=== PATIENT | female | born 1995 | race Caucasian/White ===

== ENCOUNTER 2024-02-29 11:48 | Outpatient (REF) | payer MEDICAID, SELFPAY ==
[2024-02-29 14:24] LABS: MANUAL DIFF FLAG NO
[2024-02-29 14:39] LABS: Basophils Percent Auto 0.4 % (0-2); Eosinophils Absolute Auto 0.1 X10*3/uL (0.0-0.4); Hematocrit 39.8 % (37.0-47.0); Imm Gran Abs Auto 0.01 X10*3/uL (0.00-0.03); Imm Gran Pct Auto 0.2 % (0.0-0.4); Lymphocytes Absolute Auto 1.7 X10*3/uL (1.2-4.9); Lymphocytes Percent Auto 32.1 % (20-40); Mean Corpuscular HGB Conc 32.7 g/dl (31.0-35.0); Mean Corpuscular Volume 91.9 fL (80.0-98.0); Mean Platelet Volume 11.3 fL (9.4-12.3); Monocytes Absolute Auto 0.3 X10*3/uL (0.1-1.2); Monocytes Percent Auto 6.4 % (2-11); Neutrophils Absolute Auto 3.1 x10*3/uL (2.0-8.3); Neutrophils Percent Auto 59.9 % (45-73); Platelet Count 301 X10*3/uL (160-400); Red Blood Count 4.33 X10*6/uL (4.20-5.50); Red Cell Distribution Width 13.1 % (11.0-16.0); White Blood Count 5.1 X10*3/uL (4.8-10.8)
[2024-02-29 14:49] LABS: Magnesium 2.2 mg/dL (1.6-2.6)
[2024-02-29 15:05] LABS: TSH reflex Free T4 0.67 uIU/mL (0.32-4.0); Vitamin D 25-OH Total 22.7 ng/mL (>30)
[2024-02-29 15:17] LABS: Folate 7.6 ng/mL (> or = 4.0); Vitamin B12 279 pg/mL (200-900)
== END 2024-02-29 11:49 | disposition home or self-care (01) ==
LOC: HO.CHCLDS 11:48
PROVIDERS: Visit Provider Pediatrics
DX: L65.9 Nonscarring hair loss, unspecified (principal)
CPT/HCPCS: 36415; 82306; 82607; 82746; 83735; 84443; 85025

== ENCOUNTER 2025-02-09 11:02 | Outpatient (REF) | payer MEDICAID, SELFPAY ==
--- OUTSIDE RECORDS SUMMARY | 2025-02-09 12:48 | XMS_ITS | Encounter Summary ---
Author Organization [employer] Address [address] [place] [address] [address] [place] [address] Care Team Providers Care Balancing Machine Operator Name Role Phone Hannah Brush MD Primary Care Provider [phone] Reason for Referral * Consultation (Routine) - Authorized Specialty Diagnoses / Procedures Referred By Thor zepeda Referred To Contact Behavioral Health Diagnoses Attention deficit Hannah Brush MD [address] [place] [address] Phone: tel: fax: Referral ID Status Reason Start Date Expiration Date Visits Requested Visits Authorized [id number] Authorized Specialty Services Required 02/09/2025 02/09/2026 1 1 Encounter Details Date Type Department Care Team (Late st Contact Info) Description 02/09/2025 10:00 AM EDT Office Visit [facility] [address] [place] [address] Hannah Brush MD [address] [place] [address] Vitamin D deficiency (Primary Dx); Dietary counseling; Exercise counseling; Routine general medical examination at a health care facility; Encounter for immunization; Attention deficit Social History Tobacco Use Types Packs/Day Years Used Date Smoking Tobacco: Never Passive Smoke Exposure: Never Smokeless Tobacco: Never Alcohol Use Standard Drinks/Week Comments Never 0 (1 standard drink = 0.6 oz pur e alcohol) Depression Answer Date Recorded Patient Health Questionnaire-9 Score 19 02/09/2025 Patient Health Questionnaire-9 Score 19 02/09/2025 Last PHQ-9: Questionnaire Data Not on file 0 02/09/2025 Housing Stability Answer Date Recorded What is your housing situation today? I have lonny nicole 10/11/[address] you li ve. Do you have problems with any of the following? None of the above 10/11/2024 Food Insecurity Answer Date Recorded Within the past 12 months, y ou worried that your food would run out before you got money to buy more: Never True 10/11/2024 Within the past 12 months,th e food you bought just didn't last and you didn't have enough money to get more: Never True 02/2024 Transportation Answer Date Recorded In the past 12 months, has l ack of transportation kept you from medical appts, meetings, work or from getting things needed for daily living? No 01/31/2025 Utilities Answer Date Recorded In the past 12 months, has t he electric, gas, oil or water company threatened to shut off services in your home? No 10/11/2024 Depression Answer Date Recorded Patient Health Questionnaire-2 Score 3 02/09/2025 Internet Access Answer Date Recorded Internet Access Q1 Yes 10/11/2024 Internet Access Q2 Not on file 10/11/2024 Comments No Sex and Gender Information Value Date Recorded Sex Assigned at Female 09/07/2022 10:35 AM EDT Legal Sex Female 10:35 AM EDT Gender Identity Female 09/07/2022 10:35 AM EDT Sexual Orientation Straight 09/07/2022 10 :35 AM EDT documented as of this encounter Last Filed Vital Signs Vital Sign Reading Time Taken Comments Blood Pressure 110/73 02/09/2025 10:06 AM EDT Pulse 80 02/09/2025 10:06 AM EDT Temperature 36.7 ??C (98.1 ??F) 02/09/2025 10:06 AM E DT Respiratory Rate 16 02/09/2025 10:06 AM EDT Oxygen Saturation 98% 02/09/2025 10:06 AM EDT Inhaled Oxygen Concentration - - Weight 73 kg (161 lb) 02/09/2025 10:06 AM EDT Height 160 cm (5' 3 ) 02/09/2025 10:06 AM EDT Body Mass Index 28.52 02/09/2025 10:06 AM EDT documented in this encounter Progress Notes * Hannah Brush MD - 02/09/2025 10:00 AM EDT Subjective Patient ID: Grady Barrios is a 30 y.o. female who presents for her PE visit. Grady is a healthy 30 y/o female patient of mine here for her PE visit. Feels well today. Needs her pap smear done but is on her period today so she would like to get it schedule another day. Her periods are irregular as she is on OCPs. C/O overall breast tenderness mostly related to period time.Denies drinking too much coffee. Works remotely. Lives with her son only . States despite living in a quiet environment she is constantly reminded by her boss that she lacks attention doing her job. States that I have referred her to behavioral health but they have not returned her call or referred herto outpatient therapy yet. Denies depression or anxiety symptoms today. Complains of chronic fatigue despite having normal labs. States wakes up frequently at night because her son coughs a lot due to his asthma and allergies. Review of Systems Constitutional: Negative for activity change, chills, fever and unexpected weight change. Respiratory: Negative for cough, shortness of breath and wheezing. Cardiovascular: Negative for chest pain, palpitations and leg swelling. Gastrointestinal: Negative for abdominal pain and blood in stool. Endocrine: Negative for polydipsia and polyuria. Genitourinary: Negative for decreased urine volume, difficulty urinating, dysuria and hematuria. Musculoskeletal: Negative for arthralgias and gait problem. Skin: Negative for color change and rash. Neurological: Negative for dizziness and headaches. Hematological: Negative for adenopathy. Psychiatric/Behavioral: Positive for decreased concentration and sleep disturbance. Negative for agitation, dysphoric mood, hallucinations and suicidal ideas. The patient is not nervous/anxious and is not hyperactive. Objective BP 110/73 (BP Location: Left arm, Patient Position: Sitting, BP Cuff Size: Adult) Pulse80 Temp 98.1 ??F (36.7 ??C) (Oral) Resp 16 Ht 5' 3 (1.6 m) Wt 161 lb (73 kg) LMP 02/05/2025 (Exact Date) SpO2 98% BMI 28.52 kg/m?? Physical Exam Constitutional: General: She is not in acute distress. Appearance: Normal appearance. She is not ill-appearing. HENT: Head: Normocephalic. Right Ear: Tympanic membrane and ear canal normal. Left Ear: Tympanic membrane and ear canal normal. Nose: Nose normal. Mouth/Throat: Mouth: Mucous membranes are moist. Pharynx: No oropharyngeal exudate or posterior oropharyngeal erythema. Eyes: Extraocular Movements: Extraocular movements intact. Conjunctiva/sclera: Conjunctivae normal. Pupils: Pupils are equal, round, and reactive to light. Cardiovascular: Rate and Rhythm: Normal rate and regular rhythm. Pulses: Normal pulses. Heart sounds: Normal heart sounds. Pulmonary: Effort: Pulmonary effort is normal. No respiratory distress. Breath sounds: Normal breath sounds. Chest: Breasts: Doroteo Score is 5. Right: Normal. No bleeding, inverted nipple, mass, nipple discharge, skin change or tenderness. Left: Normal. No bleeding, inverted nipple, mass, nipple discharge, skin change or tenderness. Abdominal: Palpations: Abdomen is soft. Musculoskeletal: General: Normal range of motion. Cervical back: Normal range of motion. Lymphadenopathy: Upper Body: Right upper body: No supraclavicular or axillary adenopathy. Left upper body: No supraclavicular or axillary adenopathy. Skin: General: Skin is warm. Capillary Refill: Capillary refill takes less than 2 seconds. Neurological: General: No focal deficit present. Mental Status: She is alert and oriented to person, place, and time. Psychiatric: Mood and Affect: Mood normal. Behavior: Behavior normal. Thought Content: Thought content normal. Judgment: Judgment normal. Assessment/Plan Diagnoses and all orders for this visit: Vitamin D deficiency Comments: Patient states she took her vitamin D replacement as prescribed. Will recheck levels today and treat again if needed patient agrees. Orders: - Vitamin D, 25-Hydroxy, Total, Immunoassay; Future Dietary counseling Exercise counseling Routine general medical examination at a health care facility Comments: Patient is due for Pap smear but declines today due to having her. She will be scheduled with me for this matter. Breast exam done today and was normal. She is on control. No STI check needed per patient at this time. Dental clinic is at [facility]. Behavioral health referral will be done for mentalhealth assessment due to lack of focusing and attention which could be due to anxiety. Follow-up with me for Pap smear as planned. Orders: - Hepatitis B Surface Antibody, Qualitative; Future - Measles, Mumps, and Rubella (MMR) Antibodies (IgG) Panel, Immune Status; Future - Varicella Zoster Antibody, IgG; Future - TDAP VACCINE 7 yrs + Encounter for immunization Comments: Tdap vaccine received today as she is due. Will check status of MMR, varicella and hep B and give due vaccines if needed. Orders: - TDAP VACCINE 7 yrs + Attention deficit Comments: Patient works remotely and states he is constantly told that her attention is lacking despite having a quiet set up at home to do her job. documented in this encounter Plan of Treatment Upcoming Encounters Date Type Department Care Team (Late st Contact Info) Description 03/09/2025 2:30 PM EDT Office Visit [facility] OPTOMET[facility] [address] [place], [place] [id number] Baldo, Bebe, OD [address] [place] [address] 05/16/2025 9:45 AM EDT Procedure Visit [facility] [address], [place] [phone] Hannah Brush MD [address] [place], [place] [phone] Scheduled Orders Name Type Priority Associated Diagnoses Orde r Schedule Vitamin D, 25-Hydroxy, Total, Immunoassay Lab Routine Vitamin D deficiency Expected: 02/09/2025 (Approximate), Expires: 02/09/2026 Hepatitis B Surface Antibody, Qualitative Lab Routine Routine general medical examination at a health care facility Expected: 02/09/2025 (Approximate), Expires: 02/09/2026 Measles, Mumps, and Rubella (MMR) Antibodies??(IgG) Panel, Immune Status Lab Routine Routine general medical examination at a health care facility Expected: 02/09/2025 (Approximate), Expires: 02/09/2026 Varicella Zoster Antibody, IgG Lab Routine Routine general medical examination at a health care facility Expected: 02/09/2025 (Approximate), Expires: 02/09/2026 Scheduled Referrals Name Type Priority Associated Diagnoses Order Schedule Referral to Behavioral Health Outpatient Referral Routine Attention deficit Expected: 02/09/2025 (Approximate), Expires: 02/09/2026 documented as of this encounter Visit Diagnoses Diagnosis Vitamin D deficiency- Primary Dietary counseling Dietary surveillance and counseling Exercise counseling Routine general medical examination at a health care facility Encounter for immunization Attention deficit documented in this encounter Additional Health Concerns Assessment Noted Time PHQ-9 Depression Total Score: 19 025 10:34 AM EDT documented as of this encounter Care Teams Balancing Machine Operator Relationship Specialty Start Date End Date Hannah Brush MD [address] [place] [id number] PCP - General Family Medicine 01/06/21 documented as of this encounter
--- OUTSIDE RECORDS SUMMARY | 2025-02-09 12:48 | XMS_ITS | Encounter Summary ---
Demographics Address [address] [place] [address] [address] [place] [address] Mobile Phone Email Address Preferred Language en Marital Status Single Jew Affiliation Unknown Race White Ethnic Group or Author Organization [employer] Address [address] [facility] [address] [place] [address] Care Team Providers Care Infant Toddler Lead Teacher Name Role Phone Hannah Brush MD Primary Care Provider [phone] Reason for Visit * Reason Onset Date Comments Nurse Triage 06/02/2023 Encounter Details Date Type Department Care Team ([facility] st Contact Info) Description 06/02/2023 Telephone [facility] [address] [place] [address] Hannah Brush MD [address] [place] [address] Nurse Triage Social History Tobacco Use Types Packs/Day Years Used Date Smoking Tobacco: Never Passive Smoke Exposure: Never Smokeless Tobacco: Never Alcohol Use Standard Drinks/Week Comments Never 0 (1 standard drink = 0.6 oz pur e alcohol) Comments Unknown Sex and Gender Information Value Date Recorded Sex Assigned at Female 09/07/2022 10:35 AM EDT Legal Sex Female 10:35 AM EDT Gender Identity Female 09/07/2022 10:35 AM EDT Sexual Orientation Straight 09/07/2022 10 :35 AM EDT documented as of this encounter Miscellaneous Notes * Telephone Encounter - Isadora Finnegan RN - 06/02/2023 10:33 AM EDT Triage call Pt reports left great toe is not getting better. Pt was seen 05/26 for paronychia of left great toe. Toe was soaked and mupirocin applied for 7 days. Pt reports no pus evidence but, redness and pain persists. Pt reports some numbness of toe as well. Pt is requesting to see PCP regarding going to the other doctors to have my nail removed . Pt is given apt in [facility] 940am 06/03/23. Insurance is verified as active prior to booking. Protocol Used: Toe Pain (Adult) Protocol-Based Disposition: See in Office or Video Visit within 3 Days Video visit not offered Positive Triage Questions: * Moderate pain (e.g., interferes with normal activities, limping) and present > 3 days * Patient wants to be seen * All higher-acuity triage questions were negative Care Advice Discussed: * Reassurance and Education - Toe Pain * Pain Medicines * Pain Medicines - Extra Notes and Warnings * Reasons To Call Back - Swelling, redness, or fever occur - Severe pain not relieved by pain medication - Pain lasts over 7 days - You become worse * Telephone Encounter - Teresita Bradford - 06/02/2023 9:51 AM EDT Symptom: Toe symptoms - Not From Injury Outcome: Schedule an appointment to be seen within 24 hours Reason: Caller denied all higher acuity questions The caller accepted this outcome Pt states medication pcp prescribed did not help . documented in this encounter Plan of Treatment Upcoming Encounters Date Type Department Care Team (Late st Contact Info) Description 03/09/2025 2:30 PM EDT Office Visit [facility] OPTOMETRY [address] [place] [address] Baldo, Bebe, OD [address] [place] [address] 05/16/2025 9:45 AM EDT Procedure Visit [facility] [address], [place] [phone] Hannah Brush MD [address] [place], [place] [phone] documented as of this encounter Visit Diagnoses Not on filedocumented in this encounter Care Teams Infant Toddler Lead Teacher Relationship Specialty Start Date End Date Hannah Brush MD [address] [place], [place] [phone] PCP - General Family Medicine 01/06/21 documented as of this encounter
--- OUTSIDE RECORDS SUMMARY | 2025-02-09 12:48 | XMS_ITS | Clinical Summary ---
Author Organization [employer] Address [address] [place] [address] 7t [place] [address] Care Team Providers Care Director Mobile Name Role Phone Hannah Brush MD Primary Care Provider [phone] Allergies Active Allergy Reactions Criticality Noted Date Comments Iodine Anaphylaxis High 06/14/2019 Medications diphenhydrAMIN E (Benadryl Allergy) 25 MG tablet Take 1 tablet by mouth. 01/29/20 22 Active EPINEPHrine (Epipen) 0.3 MG/0.3ML injection syringe Inject into the shoulder, thigh, or buttocks. 02/03/20 22 Active triamcinolone (Kenalog) 0.025 % ointment Apply topically every 12 (twelve) hours. 11/27/19 22 Active Melatonin 3 MG capsule take 1 capsule orally qhs 30 capsule 11 02/27/20 23 Active fluticasone (Flonase Allergy Relief) 50 MCG/ACT nasal spray Administer 2 sprays into each nostril in the morning. 16 g 11 02/27/20 23 Active cyanocobalamin (Vitamin B-12) 1000 MCG tablet TAKE 3 TABLETS (3000 mcg) BY MOUTH EVERY DAY 02/27/20 23 Active ergocalciferol (Vitamin D2) 1.25 MG (48074 UT) capsule Take 1 capsule (1.25 mg) by mouth 1 (one) time per week. 8 capsule 03/22/20 23 Active Cholecalcifero l (Vitamin D) 125 MCG (5000 UT) capsule Take 1 capsule (125 mcg) by mouth in the morning. 90 capsule 4 03/22/20 23 Active cetirizine (ZyrTEC) 10 MG tablet Take 1 tablet (10 mg) by mouth in the morning. 30 tablet 11 05/26/20 23 Active L norgest/e.estr adiol-e.estrad (Camrese) 0.15-0.03 &0.01 MG tablet tablet Take 1 tablet by mouth in the morning. 90 tablet 4 12/07/19 24 Active fexofenadine (Maine) 180 MG tablet Take 1 tablet (180 mg) by mouth in the morning. 30 tablet 11 01/17/20 24 Active ketotifen (Zaditor) 0.025 % ophthalmic solution Administer 1 drop into both eyes 2 times daily. 5 mL 3 01/17/20 24 Active aluminum chloride (Drysol) 20 % external solution Apply topically at bedtime. 60 mL 11 02/29/20 24 025 Active ergocalciferol (Vitamin D2) 1.25 MG (83093 UT) capsule Take 1 capsule (1.25 mg) by mouth 1 (one) time per week. 12 capsule 03/06/20 24 Active ketoconazole (NIZOral) 2 % shampoo Apply topically 2 (two) times a week. 100 mL 5 01/26/20 25 Active ketoconazole (NIZOral) 2 % shampoo Apply topically 2 (two) times a week. 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 Menometrorrhagia 03/01/2023 Encounters Date Type Department Care Team Description 02/09/2025 10:00 AM EDT Office Visit [facility] [address] [place] [address] Hannah Brush MD Vitamin D deficiency (Primary Dx); Dietary counseling; Exercise counseling; Routine general medical examination at a health care facility; Encounter for immunization; Attention deficit 02/09/2025 Travel 02/06/2025 Telephone [facility] [address], [place] [phone] Hannah Brush MD Chart Prep 01/31/2025 Patient Outreach [facility] [address] [place] [phone] Hannah Brush MD Pre-visit Planning (SDOH screening negative and Tobacco screening negative) 01/22/2025 Refill [facility] [address] [place] [address] Hannah Brush MD 01/19/2025 Population Health Risk Score [facility] Department [address] [place] [phone] Provider, Population Health Generic 12/14/2024 Patient Outreach [facility] [address] [place] [phone] Hannah Brush MD Care Coordination ([facility] [place]/Irene Dacosta program graduation ) 11/28/2024 Patient Outreach [facility] [address] [place] [address] Hannah Brush MD SDOH Concerns ([facility] [place]/DORIS Smiley f/u call) 11/21/2024 Telephone [facility] [address] [place] [address] Hannah Brush MD PT1 from Last 3 Months Immunizations Name Administration Dates Next Due Influenza injectable quadrivalent preservative f ree 09/30/2021,08/14/2021 Tdap 02/09/2025 Family History Medical History Relation Name Comments Cancer Other Diabetes Other Mental illness Other Relation Name Status Comments Other Social History Tobacco Use Types Packs/Day Years Used Date Smoking Tobacco: Never Passive Smoke Exposure: Never Smokeless Tobacco: Never Tobacco Cessation:Counseling Given: Not Answered Alcohol Use Standard Drinks/Week Comments Never 0 (1 standard drink = 0.6 oz pur e alcohol) Depression Answer Date Recorded Patient Health Questionnaire-9 Score 19 02/09/2025 Patient Health Questionnaire-9 Score 19 02/09/2025 Last PHQ-9: Questionnaire Data Not on file 0 02/09/2025 Housing Stability Answer Date Recorded What is your housing situation today? I have lonnyelicia nicole 10/11/[address] you [...] Orientation Straight 09/07/2022 10 :35 AM EDT Last Filed Vital Signs Vital Sign Reading [...] Mass Index 28.52 02/09/2025 10:06 AM EDT Plan of Treatment Upcoming Encounters Date Type Department Care Team (Late st Contact Info) Description 03/09/2025 2:30 PM EDT Office Visit [facility] [address] [place] [address] Bebe Bland, OD [address] [place] [address] 05/16/2025 9:45 AM EDT Procedure Visit [facility] [address], [place] [phone] Hannah Brush MD [address] [place] [address] Health Maintenance Due Date Last Done Comments Family Planning (PISQ) 01/27/2011 Hepatitis B Vaccines (1 of 3 - 19+ 3-dose series) 01/27/2015 Pap Smear 01/27/2017 COVID-19 Vaccine (3 - 2023-2 5 season) 2024 09/30/2021, 07/03/2021 Influenza Vaccine (#1) 2024 , 08/14/2021 Dental Oral Exam 08/12/2024 02/10/2024 Dental Prophylaxis 08/12/2024 02/10/2024, 03/25/2023 Dental X-Ray: Bitewings 08/19/2024 08/18/20, 03/10/2023 Tobacco Screening 02/09/2025 02/10/2024 Depression Monitoring (PHQ-9) 08/11/2025, 02/09/2025 SDOH Screening 01/31/2026 01/31/2025 Alcohol/Substance Use Screening 02/09/2026 02/09/2025 Depression Screening 02/09/2026 02/09/2025, 02/09/2025 Dental X-Ray: Full Mouth 03/11/2026 03/10/2023 DTaP/Tdap/Td Vaccines (2 - T d or Tdap) 02/09/2035 02/09/2025 Zoster Vaccines (1 of 2) 01/27/2046 RSV Patients and Patients Aged 60 years or older (1 - 1-dose 75+ series) 01/27/2071 HIV Screening Completed 09/30/2021 Hepatitis C Screening Completed 09/30/2021 HIB Vaccines Aged Out No longer eligi ble based on patient's age to complete this topic HPV Vaccines Aged Out No longer eligi ble based on patient's age to complete this topic Hepatitis A Vaccines Aged Out No long er eligible based on patient's age to complete this topic IPV Vaccines Aged Out No longer eligi ble based on patient's age to complete this topic Meningococcal Vaccine Aged Out No leonel michelle eligible based on patient's age to complete this topic Pneumococcal Vaccine: Pediatrics (0 to 5 Years) and At-Risk Patients (6 to 49) Years) Aged Out No longer eligible b ased on patient's age to complete this topic RSV under 20 months Aged Out No longe r eligible based on patient's age to complete this topic Rotavirus Vaccines Aged Out No longer eligible based on patient's age to complete this topic Procedures Procedure Name Priority Date/Time Associated Diagnosis Comments Full PROPHYLAXIS - ADULT Routine 02/10/2024 11:00 AM EDT PERIODIC ORAL EVALUATION - ESTABLISHED PATIENT Routine 02/10/2024 11:00 AM EDT BITEWING - SINGLE RADIOGRAPHIC IMAGE Routine 08/18/2023 11:00 AM EDT INTRAORAL - COMPLETE SERIES OF RADIOGRAPHIC IMAGES Routine 03/10/2023 8:00 AM EDT ZZZ HISTORICAL HEPATITIS C AB W/REFL TO HCV RNA, QN, PCR Routine 09/30/2021 4:48 PM EST HIV 1/2 ANTIGEN/ANTIBODY, FOURTH GENERATION W/RFL Routine 09/30/2021 4:48 PM EST from Last 3 Months or Most Recently Relevant to Health Maintenance Results * HEPATITIS C AB W/REFL TO HCV RNA, QN, PCR (09/30/2021 4:48 PM EST) HEPATITIS C ANTIBODY NON-REACT SHANNEN NON-REACT SHANNEN [facility] INDEX 0.01 <1.00 [facility] Comment: ?? HCV antibody was non-reactive. There is no laboratory ?? evidence of HCV infection. ?? In most cases, no further action is required. However, if recent HCV exposure is suspected, a test for HCV RNA (test code 62491) is suggested. ?? For additional information please refer to http://education.[employer].CampusTap/faq/FLV45c9 (This link is being provided for informational/ educational purposes only.) ?? 09/30/2021 4:48 PM EST us Jay Tapia MD HISTORICAL/NON ORDERABLE LABS Fi nal Result [facility] [address] * HIV 1/2 ANTIGEN/ANTIBODY,FOURTH GENERATION W/RFL (09/30/2021 4:48 PM EST) HIV-1/2 ANTIGEN AND ANTIBODIES, 4TH GENERATION W/ REFLEX NON-REACT SHANNEN NON-REACT SHANNEN [facility] Comment: HIV-1 antigen and HIV-1/HIV-2 antibodies were not detected. There is no laboratory evidence of HIV infection. ?? PLEASE NOTE: This information has been disclosed to you from records whose confidentiality may be protected by state law. ??If your state requires such protection, then the state law prohibits you from making any further disclosure of the information without the specific written consent of the person to whom it pertains, or as otherwise permitted by law. A general authorization for the release of medical or other information is NOT sufficient for this purpose. ? For additional information please refer to http://education.Kivivi/faq/YVR514 (This link is being provided for informational/ educational purposes only.) ? The performance of this assay has not been clinically validated in patients less than 2 years old. ?? 09/30/2021 4:48 PM EST us Jay Tapia MD LAB BLOOD ORDERABLES Final Resul t Performing Organization Address City/State/ZIP Co de [facility] [place] [facility] [facility] Anywhere [address] from Last 3 Months or Most Recently Relevant to Health Maintenance Insurance [place] [id number] [place] STAND ADULT JJ [address] [facility] [place] [address] [facility] [place] [id number] [place] [id number] Care Teams Director Mobile Relationship Specialty Start Date End Date Hannah Brush MD [address] [place] [address] [place] [address] PCP - General Family Medicine 01/06/21
--- OUTSIDE RECORDS SUMMARY | 2025-02-09 12:48 | XMS_ITS | Encounter Summary ---
Author Organization [employer] Address [address] [place] [address] [address] [place] [address] Care Team Providers Care Mill Tender Name Role Phone Hannah Brush MD Primary Care Provider [phone] Reason for Visit * Reason Comments Med Refill Encounter Details Date Type Department Care Team ([facility] Contact Info) Description 05/17/2023 Refill [facility] [address] [place] [address] Orlando Stanford MD [address] [place] [address] Social History Tobacco Use Types Packs/Day Years [...] Orientation Straight 09/07/2022 10 :35 AM EDT COVID-19 Exposure Response Date Recorded In the last 10 days, have yo u been in contact with someone who was confirmed or suspected to have Coronavirus/COVID-19? No / Unsure 04/21/2023 3:34 PM EDT documented as of this encounter Plan of Treatment Upcoming Encounters Date Type Department Care Team ([facility] Contact Info) Description 03/09/2025 2:30 PM EDT Office Visit [facility] [address] [place], [place] [phone] Baldo, Bebe, OD [address] [place] [address] 05/16/2025 9:45 AM EDT Procedure Visit [facility] [address] [place] [address] Hannah Brush MD [address] [place] [address] documented as of this encounter Visit Diagnoses Not on filedocumented in this encounter Care Teams Mill Tender Relationship Specialty Start Date End Date Hannah Brush MD [address] [place] [address] PCP - General Family Medicine 01/06/21 documented as of this encounter
--- OUTSIDE RECORDS SUMMARY | 2025-02-09 12:48 | XMS_ITS | Encounter Summary ---
Author Organization [employer] Address [address] [facility] [address]t [place] [address] Care Team Providers Care Liquid Fertilizer Servicer Name Role Phone Hannah Brush MD Primary Care Provider Reason for Visit * Reason Onset Date Comments Chart Prep 02/06/2025 Encounter Details Date Type Department Care Team ([facility] st Contact Info) Description 02/06/[address] [facility]EDS [address] [place] [address] Hannah Brush MD [address] [place] [address] Chart Prep Social History Tobacco Use Types Packs/Day Years Used Date Smoking Tobacco: Never Passive Smoke Exposure: Never Smokeless Tobacco: Never Alcohol Use Standard Drinks/Week Comments Never 0 (1 standard drink = 0.6 oz pur e alcohol) Housing Stability Answer Date Recorded What is [...] off services in your home? No 10/11/2024 Internet Access Answer Date Recorded Internet Access [...] encounter Miscellaneous Notes * Telephone Encounter - Jinny Barr MA - 02/06/2025 3:49 PM EDT Chart Prep Labs: done Images: not applicable Vaccines due: yes Referrals: not applicable Screenings: pap smear and LMP Overdue care gaps: SBIRT, PHQ-9, Disability screen, and Tobacco documented in this encounter Plan of Treatment Upcoming Encounters Date Type Department Care Team (Late st Contact Info) Description 03/09/2025 2:30 PM EDT Office Visit [facility] [address] [place] [address] Baldo, Bebe, OD [address] [place] [address] 05/16/2025 9:45 AM EDT Procedure Visit [facility] PEDS [address] [place] [address] Hannah Brush MD [address] [place] [address] documented as of this encounter Visit Diagnoses Not on filedocumented in this encounter Care Teams Liquid Fertilizer Servicer Relationship Specialty Start Date End Date Hannah Brush MD [address] [place] [address] PCP - General Family Medicine 01/06/21 documented as of this encounter
--- OUTSIDE RECORDS SUMMARY | 2025-02-09 12:48 | XMS_ITS | Encounter Summary ---
Author Organization [employer] Address [address] [facility] 7t [place] [address] Care Team Providers Care Java Development Team Lead Name Role Phone Hannah Brush MD Primary Care Provider [phone] Encounter Details Date Type Department Care Team (Latest Contact Info) Description 02/09/2025 Travel Social History Tobacco Use Types Packs/Day Years [...] AM EDT documented as of this encounter Plan of Treatment Upcoming Encounters Date Type Department Care Team (Late st Contact Info) Description 03/09/2025 2:30 PM EDT Office Visit [facility] [address] [place] [address] Baldo, Bebe, OD [address] [place] [address] 05/16/2025 9:45 AM EDT Procedure Visit [facility] [address] [place] [address] Hannah Brush MD [address] [place] [address] documented as of this encounter Visit Diagnoses Not on filedocumented in this encounter Additional Health Concerns Assessment Noted Time PHQ-9 Depression Total Score: 19 025 10:34 AM EDT documented as of this encounter Care Teams Java Development Team Lead Relationship Specialty Start Date End Date Hannah Brush MD [address] [place] [address] PCP - General Family Medicine 01/06/21 documented as of this encounter
--- OUTSIDE RECORDS SUMMARY | 2025-02-09 12:49 | XMS_ITS | Encounter Summary ---
Author Organization [employer] Address [address] [facility] 7t [place] [address] Care Team Providers Care Volunteer Recruiter Name Role Phone Hannah Brush MD Primary Care Provider [phone] Reason for Visit * Reason Onset Date Comments Nurse Triage 01/17/2024 Encounter Details Date Type Department Care Team ([facility] st Contact Info) Description 01/17/2024 Telephone [facility] [address] [place] [address] Hannah Brush MD [address] [place] [address] Nurse Triage Social History Tobacco Use Types Packs/Day Years Used Date Smoking Tobacco: Never Passive Smoke Exposure: Never Smokeless Tobacco: Never Alcohol Use Standard Drinks/Week Comments Never 0 (1 standard drink = 0.6 oz pur e alcohol) Comments No Sex and Gender Information Value Date Recorded Sex Assigned at Female 09/07/2022 10:35 AM EDT Legal Sex Female 10:35 AM EDT Gender Identity Female 09/07/2022 10:35 AM EDT Sexual Orientation Straight 09/07/2022 10 :35 AM EDT documented as of this encounter Miscellaneous Notes * Telephone Encounter - Wing Tolu RN - 01/17/2024 4:23 PM EDT Tc to pt regarding allergy medication and education added by PCP. Pt verbalized understanding and agreement with plan. * Telephone Encounter - Isadora Finnegan RN - 01/17/2024 3:59 PM EDT Triage call Pt reports having seasonal allergies. Pt reports went out yesterday and began to have allergy symptoms of nasal drainage, clear to green, nasal congestion and itchy, watery, swollen eyes.Pt is taking zyrtec as prescribed but nasal congestion is getting worse. Pt reports a temp of 99.7-100. Ears without congestion but, much wax formed. Pt is requesting medication for nasal congestion.Pt is offered to come to [facility] but, reports because of eyes becoming so watery and itchy unable to drive. Pt is advised will send this information to PCP and [facility] nurses for follow up and Pt agrees withdisposition. Advised probably won't get call today but, look for call tomorrow. Pt will continue totake zyrtec as prescribed and will stay in home at this time to reduce allergens. Protocol Used: Nasal Allergies (Hay Fever) (Adult) Protocol-Based Disposition: Home Care Positive Triage Question: * Nasal allergies occur only certain times of year * All higher-acuity triage questions were negative Care Advice Discussed: * Reassurance and Education - Hay Fever * Reasons To Call Back - Symptoms are not controlled in 2 days with continuous antihistamines - You become worse * Telephone Encounter - Ceci Dacosta - 01/17/2024 3:34 PM EDT Symptoms: Colds, Nasal Allergies (Hay Fever) Outcome: Schedule an appointment to be seen within 24 hours Reason: Caller denied all higher acuity questions The caller accepted this outcome Please contact pt at [phone] documented in this encounter Plan of Treatment Upcoming Encounters Date Type Department Care Team ([facility] st Contact Info) Description 03/09/2025 2:30 PM EDT Office Visit [facility] [address] [place], [place] [phone] Bebe Bland, OD [address] [place] [address] 05/16/2025 9:45 AM EDT Procedure Visit [facility] P[facility] [address] [place] [address] Hannah Brush MD [address] [place] [address] documented as of this encounter Visit Diagnoses Not on filedocumented in this encounter Care Teams Volunteer Recruiter Relationship Specialty Start Date End Date Hannah Brush MD [address] [place] [address] PCP - General Family Medicine 01/06/21 documented as of this encounter
--- OUTSIDE RECORDS SUMMARY | 2025-02-09 12:49 | XMS_ITS | Encounter Summary ---
Author Organization [employer] Address [address] [facility] 7t [place] [address] Care Team Providers Care Manager Retention Name Role Phone Hannah Brush MD Primary Care Provider [phone] Reason for Visit * Reason Onset Date Comments Med Refill 03/04/2023 Encounter Details Date Type Department Care Team (Late Contact Info) Description 03/04/2023 Telephone [facility] [address] [place] [address] Hannah Brush MD [address] [place] [address] Med Refill Social History Tobacco Use Types Packs/Day Years Used Date Smoking Tobacco: Never Comments Unknown Sex and Gender Information Value [...] suspected to have Coronavirus/COVID-19? No / Unsure 03/05/2023 12:44 PM EDT documented as of this encounter Miscellaneous Notes * Telephone Encounter - Dane Beauchamp - 03/04/2023 11:20 AM EDT Tc from pt requesting med refill L norgest/e.estradiol-e.estrad (Seasonique) 0.15-0.03 &0.01 MG tablet tablet documented in this encounter Plan of Treatment Upcoming Encounters Date Type Department Care Team (Late st Contact Info) Description 03/09/2025 2:30 PM EDT Office Visit [facility] [address] [place] [address] Bebe Bland, OD [address] [place] [address] 05/16/2025 9:45 AM EDT Procedure Visit [facility] & PEDS [address] [place], [place] [phone] Hannah Brush MD [address] [place], [place] [phone] documented as of this encounter Visit Diagnoses Not on filedocumented in this encounter Care Teams Manager Retention Relationship Specialty Start Date End Date Hannah Brush MD [address] [place], [place] [phone] PCP - General Family Medicine 01/06/21 documented as of this encounter
--- OUTSIDE RECORDS SUMMARY | 2025-02-09 12:49 | XMS_ITS | Encounter Summary ---
Demographics Address [address] [place] [address] [address] [place] [address] Mobile Phone Email Address Preferred Language en Marital Status Single Adventism Affiliation Unknown Race White Ethnic Group or Author Organization [employer] Address [address] [facility] [address] [place] [address] Care Team Providers Care Paramedic Rn Name Role Phone Hannah Brush MD Primary Care Provider [phone] Reason for Visit * Reason Onset Date Comments PT1 10/10/2024 Encounter Details Date Type Department Care Team ([facility] st Contact Info) Description 10/10/2024 Telephone [facility] & PEDS [address] [place] [address] Hannah Brush MD [address] [place] [address] PT1 Social History Tobacco Use Types Packs/Day Years [...] from getting things needed for daily living? Yes, it has kept me from medical appointments or getting medications. 10/11/2024 Utilities Answer Date Recorded In the past [...] encounter Miscellaneous Notes * Telephone Encounter - Teresita Bradford - 10/10/2024 2:57 PM EST Patient calling requesting PT1 Home Address verified: Y/N: Yes Provider name or facility name: [facility] Facility Address: [address] [place] [address] Escort needed: Y/N: Yes Do you have a wheelchair: Y/N: No If yes- Manual or electric: n/a Visits: 2-3 times a month for 12 months documented in this encounter Plan of Treatment Upcoming Encounters Date Type Department Care Team (Late st Contact Info) Description 03/09/2025 2:30 PM EDT Office Visit [facility] OPT[facility] [address] [place] [address] Bebe Bland, OD [address] [place] [address] 05/16/2025 9:45 AM EDT Procedure Visit [facility] MED & PEDS [address] [place] [address] Hannah Brush MD [address] [place] [address] documented as of this encounter Visit Diagnoses Not on filedocumented in this encounter Care Teams Paramedic Rn Relationship Specialty Start Date End Date Hannah Brush MD [address] [place] [address] PCP - General Family Medicine 01/06/21 documented as of this encounter
[2025-02-09 14:49] LABS: Vitamin D 25-OH Total 54.7 ng/mL (>30)
[2025-02-10 07:34] LABS: HBS Num1 0.25 mIU/mL (0-7.99); ~Hepatitis B Surface Antibody NONREACTIVE (Nonreactive)
[2025-02-12 18:54] LABS: Varicella IgG Antibody 4.94 S/CO
[2025-02-13 19:03] LABS: Rubella IgG Antibody 1.28 Index
== END 2025-02-09 11:03 | disposition home or self-care (01) ==
LOC: HO.CHCLDS 11:02
PROVIDERS: Visit Provider Pediatrics
DX: Z00.00 Encounter for general adult medical examination without abnormal findings (principal); E55.9 Vitamin D deficiency, unspecified; Z28.39 Other underimmunization status
CPT/HCPCS: 36415; 82306; 86706; 86735; 86762; 86765; 86787

== ENCOUNTER 2025-05-16 16:36 | Outpatient (REF) | payer MEDICAID, SELFPAY | END 2025-05-16 16:37 | disposition home or self-care (01) | LOC: HO.CHCLNP 16:36 | PROVIDERS: Visit Provider Pediatrics | DX: Z01.419 Encounter for gynecological examination (general) (routine) without abnormal findings (principal); Z11.51 Encounter for screening for human papillomavirus (HPV) | CPT/HCPCS: 87626; 88175 ==